=== PATIENT | male | born 1985 | race Caucasian/White ===

== ENCOUNTER 2017-08-23 21:56 | Emergency (ER) | payer SELFPAY ==
[~2017-08-23] VITALS: Wt 86.2 kg
[~2017-08-23 21:56] MED LIST: DAYPRO600 M1 PO; IBU-8800 MG PO; LOMOTIL 0.025 M1 TA1 PO; MOTRIN800 MG PO; Motrin,Rufen800 MG PO; NORCO 5-325 TA1 EACH PO; PENICILLIN VK500 MG PO; PENICILLIN-VK500 MG PO; PERCOCET 325 MG1 TA5 PO; TOBRADEX 0.1%-0.5 ML OPH; VICODIN 500 MG-1 TAB PO; ZOFRAN ODT4 MG SL
== END 2017-08-23 23:33 | disposition home or self-care (01) ==
LOC: ED 21:56
DX: Z20.811 Contact with and (suspected) exposure to meningococcus (principal); Z79.899 Other long term (current) drug therapy

== ENCOUNTER 2021-04-13 21:51 | Emergency (ER) | payer OTHER ==
[~2021-04-13] VITALS: Ht 177.8 cm; Wt 97.5 kg
[2021-04-13] MEDS ORDERED: NAPROSYN500 MG PO (22:05)
[2021-04-13] MEDS ORDERED: METHOCARBAMOL750 M1 PO (22:05)
== END 2021-04-13 22:21 | disposition home or self-care (01) ==
LOC: ED 21:51
DX: S39.012A Strain of muscle, fascia and tendon of lower back, initial encounter (principal); Z79.899 Other long term (current) drug therapy; X58.XXXA Exposure to other specified factors, initial encounter; Y93.89 Activity, other specified; Y92.89 Other specified places as the place of occurrence of the external cause; Y99.8 Other external cause status